=== PATIENT | female | born 1950 | race Caucasian/White ===

== ENCOUNTER 2022-05-02 19:56 | Emergency (ER) | payer MEDICARE, BC ==
[~2022-05-02] VITALS: Ht 167.6 cm; Wt 69.8 kg
[~2022-05-02 19:56] MED LIST: BUPROPION XL300 MG PO; CYCLOBENZAPRINE10 MG PO; MELOXICAM15 MG PO
[2022-05-02] MEDS ORDERED: BUPROPION XL300 MG PO (20:04)
[2022-05-02] MEDS ORDERED: FLUOXETINE HCL10 M1 PO (20:04)
[2022-05-02] MEDS ORDERED: ULTRAM50 MG PO (22:04)
== END 2022-05-02 23:33 | disposition home or self-care (01) ==
LOC: ED 19:56
DX: S83.92XA Sprain of unspecified site of left knee, initial encounter (principal); S43.402A Unspecified sprain of left shoulder joint, initial encounter; Z88.2 Allergy status to sulfonamides; Z88.8 Allergy status to other drugs, medicaments and biological substances; W19.XXXA Unspecified fall, initial encounter
CPT/HCPCS: 72070; 73030; 73560; 96374; 96375; 99283-25; A9270; J1885; J2270